=== PATIENT | female | born 1950 | race African-American/Black ===

== ENCOUNTER 2020-10-02 14:00 | IRF | payer MEDICARE, MEDICAID, SELFPAY ==
[2020-10-02 14:00] VITALS: BMI 22.8
--- NOTE | 2020-10-02 14:32 | ADMGEN ---
This patient, Jacinta Interiano, was admitted to [facility] Room 225-01. Patient/family oriented to hospital policies and general routines including ID bracelet, bed and alarms, visiting hours, pain management, procedures, bathroom and other care routines, personal items, smoking policy, room service/diet, and visiting hours. Information on how to activate the Rapid Response Team has been discussed. Patient/Family are encouraged to report perceived risks to care and to ask questions if they do not understand what they are told or what they should do.
[2020-10-02 14:35] VITALS: BP 143/53; PULSE 77; RESP 18; TEMP 36.3; O2SAT 100
[2020-10-02 17:11] LABS: Glucose Point of Care 156 (65-105)
[2020-10-02] MEDS: INSULIN ASPART (*BKC) 100 UNITS/ML 6 UNITS SUB-Q (17:55)
[2020-10-02] MEDS: ATORVASTATIN 40 MG TABLET 80 MG PO (20:12)
[2020-10-02] MEDS: HYDROcodone/acetaminophen (*CRX) 5-325 MG TABLET 1 TAB PO (20:13)
[2020-10-02] MEDS: INSULIN GLARGINE (*BKC) 100 UNITS/ML 18 UNITS SUB-Q (20:20)
[2020-10-02 21:20] LABS: Glucose Point of Care 186 (65-105)
[2020-10-02 22:00] VITALS: BP 130/50; PULSE 74; RESP 18; TEMP 36.6; O2SAT 97
[2020-10-03 04:27] VITALS: BP 129/53; PULSE 62; RESP 18; TEMP 36.2; O2SAT 100
[2020-10-03 05:09] LABS: Basophils Percent Auto 0.3 % (0.2-1.2); Eosinophils Absolute Auto 0.1 K/mm3 (0-0.3); Eosinophils Percent Auto 1.6 % (0-4.4); Hematocrit 35.6 % (37.0-47.0); Hemoglobin 11.6 g/dL (12.0-15.0); Immature Granulocyte Absolute 0.02 K/mm3 (0.00-0.031); Immature Granulocyte Percent A 0.3 % (0-0.5); Lymphocytes Absolute Auto 1.87 K/mm3 (0.9-3.2); Mean Corpuscular HGB Conc 32.6 g/dl (32-36); Mean Corpuscular Hemoglobin 32.3 pg (26-34); Mean Corpuscular Volume 99.2 fl (80-100); Mean Platelet Volume 10.2 fl (7.4-10.4); Monocytes Absolute Auto 0.6 K/mm3 (0.1-0.6); Monocytes Percent Auto 8.4 % (2.6-8.5); Neutrophils Absolute Auto 4.1 K/mm3 (1.3-6.7); Neutrophils Percent Auto 61.4 % (45.5-73.1); Platelet Count Result 249 k/mm3 (150-375); Red Blood Count 3.59 M/mm3 (4.2-5.4); Red Cell Distribution Width 12.1 % (11.5-14.5); White Blood Count 6.7 K/mm3 (4.5-10.0)
[2020-10-03 05:20] LABS: Anion Gap 8 mmol/L (8-16); Blood Urea Nitrogen 33 mg/dL (7-17); Calcium 9.3 mg/dL (8.4-10.2); Carbon Dioxide 28 mmol/L (22-30); Chloride 106 mmol/L (98-107); Cholesterol 138 mg/dL (0-200); Estimated CRCL calculation 29 ml/min; Estimated Glomerular Filt Rate 54; Glucose 117 mg/dL (65-105); HDL Direct 41 mg/dL; Potassium 4.3 mmol/L (3.4-5.0); Sodium 142 mmol/L (137-145); Triglycerides 119 mg/dL (<150)
[2020-10-03 05:25] LABS: Hemoglobin A1C 7.6 % (<5.7)
[2020-10-03 05:31] LABS: LDL Cholesterol Direct 62 mg/dL
[2020-10-03 06:35] LABS: Glucose Point of Care 134 (65-105)
[2020-10-03 08:00] VITALS: PULSE 62; RESP 18; O2SAT 100
[2020-10-03] MEDS: ASPIRIN 81 MG CHEWABLE TABLET PO (09:01)
[2020-10-03] MEDS: CLOPIDOGREL BISULFATE 75 MG TABLET PO (09:01)
[2020-10-03] MEDS: INSULIN ASPART (*BKC) 100 UNITS/ML 6 UNITS SUB-Q ×3 (09:02→17:27)
[2020-10-03 11:52] LABS: Glucose Point of Care 213 (65-105)
[2020-10-03] MEDS: INSULIN ASPART (*BKC) 100 UNITS/ML SUB-Q (12:11)
[2020-10-03 13:14] VITALS: BMI 22.8
--- NOTE | 2020-10-03 13:30 | RPD ---
INDIVIDUALIZED PLAN OF CARE FOR Jacinta Interiano Brief Synthesis of Pre-Admission Screen, Post-Admission Evaluation and Therapy Evaluations: The patient presents to rehab with Acute infarct in the posterior left paramedian yomaira with involvement of the left facial colliculus. Comorbidities include HTN, HLD, DMII with hyperglycemia, double vision, new vision deficits, left-sided weakness, PAD, arthritis, chronic pain, CAD, GERD, glaucoma, scoliosis, vitamin D deficiency, conjugate gaze palsy, quit smoking 1 month ago, cataracts, abscess of left groin, elevated liver enzymes, elevated hemoglobin A1C, thyromegaly, memory loss, acute kidney issues, anemia. The patient requires physician services for neurology services, medical oversight, and coordination of care. Emotional needs will be monitored as depression is a common sequelae of stroke. The patient needs physician monitoring and treatment of new visual deficits, hypertenion, hyperglycemia, elevated BUN and CREA, anemia, monitoring for adverse reactions to new medications, monitoring of infection, and pain control. The patient requires nursing services for frequent neuro checks, anticoagulation therapy, medication management and education, pressure relief and skin care management, monitoring of labs, bowel and bladder training, diabetes management and education, possible IV administration, and fall/safety precautions. Deficits include: ADLs, Balance, Cognition, Endurance, Family Training/Education, Mobility, Pain Management, ROM, Safety, Speech, Strength, Transfers, Swallowing. Executive Assistant To General Counsel/Case Management for: Discharge Planning and Patient/Family Counseling Physical Therapy: 5 days per week for 75 minutes. Treatments may include: Therapeutic Exercise, Gait Training, Neuromuscular Re-education, Transfer Training, Community Reintegration, Bed Mobility, Patient/Family Education, Wheelchair Mobility Group Therapy/Concurrent Therapy Rationales: -Improve attention span during functional activities in a distracted environment. -Enhance problem solving and/or adequate judgment skills during functional activities in a distracted environment. -Promote increased safety awareness in a distracted environment to reduce fall risk with functional tasks, transfers, and ambulation to allow a more safe, self-sufficient return to the home environment. -Improve dynamic balance skills to promote safety and independence with functional activities in a distracted environment for maximum gain. Occupational Therapy: 5 days per week for 75 minutes. Treatments may include: Therapeutic Exercise, Therapeutic Activity, Cognitive Training, Self-Care Transfer Training, Community Reintegration, Home Management, Patient/Family Education, Wheelchair Mobility Training, Energy Conservation Training Group Therapy/Concurrent Therapy Rationales: -Allow therapist to observe and teach generalization and carry-over of skills learned in individual therapy. -Enhance problem solving and sequencing skills during therapeutic activities in a distracted environment. -Promote increased safety awareness in a realistic setting to reduce fall risk with functional tasks due to visual and verbal distractions. -Increase functional level with ADLs, ADL transfers and use of adaptive equipment through therapeutic activities with others while promoting safety to allow a more safe, self-sufficient return home. Speech Therapy: 5 days per week for 30 minutes. Treatments may include: Dysphasia Therapy, Speech/Language/Communication Therapy, Cognitive Training, Patient/Family Education Group Therapy/Concurrent Therapy - Rationale: -Allow therapist to observe and teach generalization and carry-over of skills learned in individual therapy. -Improve comprehension skills with complex or abstract ideas through discussion in a realistic setting. -Enhance problem solving skills with complex issues during activities in a distracted environment. -Promote increased memory skills an
[2020-10-03 14:00] VITALS: BP 127/51; PULSE 72; RESP 20; TEMP 36.4; O2SAT 100
--- NOTE | 2020-10-03 14:04 | PCNSR ---
On 10/03/20, the student, Bella Del Cid, provided care and completed [facility] documentation on this patient. I have reviewed the student's documentation and agree with the findings.
--- NOTE | 2020-10-03 14:12 | WPDREHABHP ---
H&P: HPI History of Present Illness Date/Time: 10/03/20 14:12 Chief Complaint: brainstem stroke Narrative: HISTORY OF PRESENT ILLNESS: 70 years old right-handed female has been admitted to acute rehab of [facility] with the patient's primary rehab impairment category of 0 1 stroke and etiological diagnosis of acute infarct in the posterior left paramedian yomaira with involvement of the left facial colliculus, in addition to the comorbid conditions of 1. Type 2 diabetes mellitus 2. Hyperlipidemia 3. Hypertension 4. Peripheral arterial disease 4. GERD 5. Vitamin-D deficiency 6. Dry eye syndrome. I saw the patien [id number] at 1:00 p.m. on October 03, 2020. # history and physical exam: 70 years old right-handed female presented to [facility] on September 28, 2020 for evaluation of an ischemic stroke. The patient obviously has a history of diabetes mellitus, hyperlipidemia, hypertension, and peripheral arterial disease. She presented with left-sided weakness and left eye droop. She also had trouble seeing out of her right eye and had developed double vision with blurriness. There was not a clear time of onset of her symptoms and she quit smoking 1 month ago. She woke up on 09/28 20 at 7:00 a.m. she had trouble with her balance, around 1:00 a.m. her daughter noted the weakness. CT scan of the head was negative for any acute abnormalities. CTA of the head and neck was also negative for the flow limiting stenosis. EKG demonstrated an ST-T abnormality with sinus rhythm. MRI revealed a small focus of acute infarct in the posterior left paramedian yomaira with involvement of the left facial colliculus. The patient was started on stroke protocol and admitted to the ICU for closer monitoring. Neurologist Dr. cooper sure would was consulted and the patient was started on aspirin, Plavix, and atorvastatin therapy. Patient was outside the time frame for tPA administration. Jabier showed normal left ventricular size, thickness and hyperdynamic systolic function, estimated ejection fraction of more than 70%, and a grade 1 diastolic dysfunction. Hemoglobin A1c was 8.6 there is a plan to continue at and adjust insulin doses according to the evolution of the blood sugar levels. blood pressure was permissible . on 09/29 she underwent a clinical swallowing evaluation and she presented with evidence of oral dysphagia. she was started on general soft diet to chew diet with the option of supervision. The patient continued to show new visual deficits of her left eye, as the patient can't see out of left eye but is unable to track. She can only see partially out of her right eye, but nystagmus movements was present while tracking. Physical examination continued to reveal double vision, left-sided weakness, balance impairment, decreased gross motor control, and decreased safety awareness. She was awake alert oriented x3 she was discharged to [facility] on Lovenox to be further assessed by physician during follow-up after rehab. #COVID: the patient has not traveled outside the [place] or had contact with someone who is ill that has traveled outside the [place] in the past 21 days. The patient has not traveled to an area of the [place] that is experiencing known transmission of the Coronavirus and has not had close personal contact with anyone that has. The patient does not have a fever. The patient is not experiencing lower respiratory illness symptoms. The patient had a negative COVID-19 test on September 28, 2020 # therapy was initiated at the acute care facility and the patient was transferred to [facility] rehab floor from [facility] on October 02, 2020 FALLS OR SURGERIES: the patient has had no major surgery in the 100 days prior to admission. The patient has had 2 or more falls in the past year. She has had no falls with injury in the past year. PAST MEDICAL HISTORY: Adenomatous colon polyp, arthritis, chronic pain, coronary artery disease, diabetes mellitus type
[2020-10-03 17:07] LABS: Glucose Point of Care 127 (65-105)
[2020-10-03 20:00] VITALS: PULSE 65; RESP 18; O2SAT 100
[2020-10-03] MEDS: ATORVASTATIN 40 MG TABLET 80 MG PO (20:57)
[2020-10-03] MEDS: INSULIN GLARGINE (*BKC) 100 UNITS/ML 18 UNITS SUB-Q (20:59)
[2020-10-03 21:45] LABS: Glucose Point of Care 174 (65-105)
[2020-10-03 22:00] VITALS: BP 147/51; PULSE 65; RESP 18; TEMP 36.3; O2SAT 100
[2020-10-04 05:05] VITALS: BP 124/60; PULSE 68; RESP 18; TEMP 36.1; O2SAT 99
[2020-10-04 07:02] LABS: Glucose Point of Care 150 (65-105)
[2020-10-04 08:00] VITALS: PULSE 68; RESP 18; O2SAT 99
[2020-10-04] MEDS: INSULIN ASPART (*BKC) 100 UNITS/ML 6 UNITS SUB-Q ×3 (09:36→17:04)
[2020-10-04] MEDS: CLOPIDOGREL BISULFATE 75 MG TABLET PO (09:38)
[2020-10-04] MEDS: ASPIRIN 81 MG CHEWABLE TABLET PO (09:38)
[2020-10-04 12:02] LABS: Glucose Point of Care 135 (65-105)
[2020-10-04 14:00] VITALS: BP 122/47; PULSE 82; RESP 20; TEMP 36.7; O2SAT 100
--- NOTE | 2020-10-04 14:38 | WPDNEURORHBP ---
Subjective Date/time seen: 10/04/20 14:38 70 years old right-handed female with the diagnosis of a stroke secondary to acute infarct in the posterior left paramedian yomaira in addition to multiple comorbid conditions has been involved in the physical therapy and occupational therapy, has remained afebrile of temp of 36.1? pulse 68 respiration 18 pulse ox 99 room air and blood pressure 124/60, blood sugar 135 Review of Systems Review of Systems: All systems reviewed & are unremarkable except as noted in HPI and below Functional Status Ambulation Ability Ability to Ambulate 10 Feet: Minimum Assistance X 1 Ability to Ambulate 50 Feet With 2 Turns: Moderate Assistance X 1 Ability to Ambulate 150 Feet: Moderate Assistance X 1 Ambulation Assistive Devices: Walker, Wheeled Exam Const: General: alert, awake and tired appearing Nutritional Appearance: average body habitus and thin Orientation/consciousness: oriented to person and oriented to place HENMT: Head: normal to inspection Ears: hearing grossly normal bilaterally General nose exam: No nasal discharge present Face and sinus: normal facial exam Eyes: General: appearance normal, both eyes and all related structures Neck: Neck: full ROM Resp: Auscultation: clear to auscultation bilaterally Cardio: Jugular venous distension: no JVD Rate: regular rate Rhythm: regular rhythm GI: Auscultation: normal bowel sounds Neuro: General: patient oriented x3 Cranial nerves: Yes CN's II-XII intact bilaterally Motor exam (neuro): Abnormal motor strength present ( left hemiparesis) Psych: Appearance: grossly normal Objective Data Vital Signs Vital Signs: Vital Signs - 24 hr 10/03/20 20:00 10/03/20 22:00 10/04/20 05:05 Temperature 36.3 C L 36.1 C L Pulse Rate 65 65 68 Respiratory Rate 18 18 18 Blood Pressure 147/51 H 124/60 Pulse Oximetry 100 100 99 Intake/Output Intake/Output: Intake & Output 10/01/20 10/02/20 10/03/20 10/04/20 23:59 23:59 23:59 23:59 Intake Total 120 720 480 Balance 120 720 480 Meds/Results Medications: Active Medications Generic Name Dose Route Start Last Admin Trade Name Freq PRN Reason Stop Dose Admin Hydrocodone Bitart/Acetaminophen 1 tab 10/03/20 14:08 Hydrocodone/Acetaminophen (*Crx) 5-325 Mg Tablet PO Q4H PRN Pain Rated 4-6 Aspirin 81 mg 10/03/20 09:00 10/04/20 09:38 Aspirin 81 Mg Chewable Tablet PO 81 mg DAILY PHILL Administration Atorvastatin Calcium 80 mg 10/02/20 21:00 10/03/20 20:57 Atorvastatin 40 Mg Tablet PO 80 mg HS PHILL Administration Benzocaine 1 lozenge 10/04/20 11:57 Benzocaine/Menthol (*Bkc) 18 Ea Lozenge PO PRN PRN Sore Throat Clopidogrel Bisulfate 75 mg 10/03/20 09:00 10/04/20 09:38 Clopidogrel Bisulfate 75 Mg Tablet PO 75 mg DAILY PHILL Administration Dextrose 12.5 gm 10/02/20 14:50 Dextrose 50% 25 Gm/50 Ml Syringe IV PUSH PRN PRN Hypoglycemia Protocol Glucagon 1 mg 10/02/20 14:50 Glucagon For Inj 1 Mg Vial IM PRN PRN Hypoglycemia Protocol Glucose 15 gm 10/02/20 14:50 Glucose Oral Gel 15 Gm Of Glucse In 37.5 Gm Tube PO PRN PRN Hypoglycemia Protocol Dextrose 1,000 mls @ 100 mls/hr 10/02/20 14:50 Dextrose 5% 1,000 Ml IVPB PRN PRN Hypoglycemia Protocol Insulin Aspart 6 units 10/02/20 17:00 10/04/20 12:45 Insulin Aspart (*Bkc) 100 Units/Ml SUB-Q 6 units TIDWM PHILL Administration Insulin Aspart 2 - 5 units 10/02/20 17:00 10/04/20 12:10 Insulin Aspart (*Bkc) 100 Units/Ml SUB-Q Not Given TIDWM [facility] Protocol Insulin Glargine 18 units 10/02/20 21:00 10/03/20 20:59 Insulin Glargine (*Bkc) 100 Units/Ml SUB-Q 18 units HS PHILL Administration Polyethylene Glycol 17 gm 10/02/20 14:50 Polyethylene Glycol 3350 17 Gm Powd.Pack PO BID PRN Constipation Labs Labs: Laboratory Results - last 24 hr 10/03/20 10/03/20
[2020-10-04] MEDS: polyethylene glycoL 3350 17 GM POWD.PACK PO (14:46)
[2020-10-04] MEDS: BENZOCAINE/MENTHOL (*BKC) 18 EA LOZENGE 1 LOZENGE PO (14:52)
[2020-10-04 16:46] LABS: Glucose Point of Care 181 (65-105)
[2020-10-04 20:00] VITALS: PULSE 82; RESP 20; O2SAT 100
[2020-10-04] MEDS: ATORVASTATIN 40 MG TABLET 80 MG PO (20:33)
[2020-10-04] MEDS: INSULIN GLARGINE (*BKC) 100 UNITS/ML 18 UNITS SUB-Q (20:34)
[2020-10-04 21:35] VITALS: BP 106/44; PULSE 74; RESP 18; TEMP 36.4; O2SAT 100
[2020-10-04 21:45] LABS: Glucose Point of Care 156 (65-105)
[2020-10-05 04:38] VITALS: BP 124/42; PULSE 73; RESP 18; TEMP 36.5; O2SAT 96
[2020-10-05 06:33] LABS: Glucose Point of Care 132 (65-105)
[2020-10-05] MEDS: INSULIN ASPART (*BKC) 100 UNITS/ML 6 UNITS SUB-Q ×3 (08:51→17:02)
[2020-10-05] MEDS: ASPIRIN 81 MG CHEWABLE TABLET PO (08:53)
[2020-10-05] MEDS: CLOPIDOGREL BISULFATE 75 MG TABLET PO (08:53)
[2020-10-05 11:54] LABS: Glucose Point of Care 152 (65-105)
[2020-10-05 14:00] VITALS: BP 116/40; PULSE 77; RESP 20; TEMP 36.3; O2SAT 100
[2020-10-05 17:06] LABS: Glucose Point of Care 137 (65-105)
[2020-10-05] MEDS: ATORVASTATIN 40 MG TABLET 80 MG PO (20:28)
[2020-10-05 20:55] LABS: Glucose Point of Care 103 (65-105)
[2020-10-05 21:19] VITALS: BP 111/44; PULSE 69; RESP 20; TEMP 36.1; O2SAT 99
[2020-10-06 05:25] VITALS: BP 114/49; PULSE 65; RESP 18; TEMP 36.3; O2SAT 100
[2020-10-06 06:03] LABS: Glucose Point of Care 116 (65-105)
[2020-10-06] MEDS: ASPIRIN 81 MG CHEWABLE TABLET PO (08:26)
[2020-10-06] MEDS: CLOPIDOGREL BISULFATE 75 MG TABLET PO (08:26)
[2020-10-06] MEDS: polyethylene glycoL 3350 17 GM POWD.PACK PO (08:26)
[2020-10-06] MEDS: HYDROcodone/acetaminophen (*CRX) 5-325 MG TABLET 1 TAB PO ×2 (08:30→21:04)
[2020-10-06] MEDS: INSULIN ASPART (*BKC) 100 UNITS/ML 6 UNITS SUB-Q ×3 (08:33→17:05)
--- NOTE | 2020-10-06 09:59 | WPDNEURORHBP ---
Subjective Date/time seen: 10/06/20 09:59 70 years old right-handed female with acute infarct in the posterior left paramedian yomaira has been involved in the therapy, there is no new lab vital signs are stable with temp 36.3? pulse 65 respiration 18 pulse ox 100 blood pressure 114/49 on room air Review of Systems Review of Systems: All systems reviewed & are unremarkable except as noted in HPI and below Functional Status Ambulation Ability Ability to Ambulate 10 Feet: Contact Guard Ability to Ambulate 50 Feet With 2 Turns: Minimum Assistance X 1 Ability to Ambulate 150 Feet: Minimum Assistance X 1 Ambulation Assistive Devices: Walker, Wheeled Exam Const: General: cooperative, comfortable, no acute distress, alert and awake Nutritional Appearance: thin Limitations: other limitations HENMT: Ears: hearing grossly normal bilaterally General nose exam: Normal external nose present and No nasal discharge present Face and sinus: normal facial exam Mouth: Yes Normal oral and palatal mucosa present Eyes: General: appearance normal, both eyes and all related structures Neck: Neck: full ROM Resp: Effort & Inspection: normal respiratory effort Auscultation: clear to auscultation bilaterally Cardio: Rate: regular rate Rhythm: regular rhythm Skin: General skin exam: no rashes or lesions noted Neuro: General: patient oriented x3 Cranial nerves: Yes CN's II-XII intact bilaterally Cognition (Neuro): normal cognition Gait exam (Neuro): Assisted gait required Motor exam (neuro): Abnormal motor strength present ( left hemiparesis) Objective Data Vital Signs Vital Signs: Vital Signs - 24 hr 10/05/20 14:00 10/05/20 21:19 10/06/20 05:25 Temperature 36.3 C L 36.1 C L 36.3 C L Pulse Rate 77 69 65 Respiratory Rate 20 20 18 Blood Pressure 116/40 L 111/44 L 114/49 L Pulse Oximetry 100 99 100 Intake/Output Intake/Output: Intake & Output 10/03/20 10/04/20 10/05/20 10/06/20 23:59 23:59 23:59 23:59 Intake Total 720 720 840 240 Balance 720 720 840 240 Meds/Results Medications: Active Medications Generic Name Dose Route Start Last Admin Trade Name Freq PRN Reason Stop Dose Admin Hydrocodone Bitart/Acetaminophen 1 tab 10/03/20 14:08 10/06/20 08:30 Hydrocodone/Acetaminophen (*Crx) 5-325 Mg Tablet PO 1 tab Q4H PRN Administration Pain Rated 4-6 Aspirin 81 mg 10/03/20 09:00 10/06/20 08:26 Aspirin 81 Mg Chewable Tablet PO 81 mg DAILY PHILL Administration Atorvastatin Calcium 80 mg 10/02/20 21:00 10/05/20 20:28 Atorvastatin 40 Mg Tablet PO 80 mg HS PHILL Administration Benzocaine 1 lozenge 10/04/20 11:57 10/04/20 14:52 Benzocaine/Menthol (*Bkc) 18 Ea Lozenge PO 1 lozenge PRN PRN Administration Sore Throat Clopidogrel Bisulfate 75 mg 10/03/20 09:00 10/06/20 08:26 Clopidogrel Bisulfate 75 Mg Tablet PO 75 mg DAILY PHILL Administration Dextrose 12.5 gm 10/02/20 14:50 Dextrose 50% 25 Gm/50 Ml Syringe IV PUSH PRN PRN Hypoglycemia Protocol Glucagon 1 mg 10/02/20 14:50 Glucagon For Inj 1 Mg Vial IM PRN PRN Hypoglycemia Protocol Glucose 15 gm 10/02/20 14:50 Glucose Oral Gel 15 Gm Of Glucse In 37.5 Gm Tube PO PRN PRN Hypoglycemia Protocol Dextrose 1,000 mls @ 100 mls/hr 10/02/20 14:50 Dextrose 5% 1,000 Ml IVPB PRN PRN Hypoglycemia Protocol Insulin Aspart 6 units 10/02/20 17:00 10/06/20 08:33 Insulin Aspart (*Bkc) 100 Units/Ml SUB-Q 6 units TIDWM PHILL Administration Insulin Aspart 2 - 5 units 10/02/20 17:00 10/06/20 08:21 Insulin Aspart (*Bkc) 100 Units/Ml SUB-Q Not Given TIDWM [facility] Protocol Insulin Glargine 18 units 10/02/20 21:00 10/05/20 20:56 Insulin Glargine (*Bkc) 100 Units/Ml SUB-Q Not Given HS [facility] Polyethylene Glycol 17 gm 10/02/20 14:50 10/06/20 08:26 Polyethylene Glycol 3350 17 Gm Powd.Pack PO 17 gm BID PRN Administration Co
[2020-10-06] MEDS: INSULIN ASPART (*BKC) 100 UNITS/ML SUB-Q (11:54)
[2020-10-06 12:19] LABS: Glucose Point of Care 254 (65-105)
[2020-10-06 14:00] VITALS: BP 126/57; PULSE 84; RESP 18; TEMP 36.3; O2SAT 96
[2020-10-06 17:01] LABS: Glucose Point of Care 118 (65-105)
[2020-10-06] MEDS: ATORVASTATIN 40 MG TABLET 80 MG PO (21:04)
[2020-10-06 21:16] VITALS: BP 141/53; PULSE 69; RESP 18; TEMP 36.3; O2SAT 100
[2020-10-06] MEDS: INSULIN GLARGINE (*BKC) 100 UNITS/ML 18 UNITS SUB-Q (21:16)
[2020-10-06 21:21] VITALS: BP 104/75; PULSE 82; RESP 18; TEMP 36.4; O2SAT 93
[2020-10-06 21:31] VITALS: BP 141/53; PULSE 69; RESP 18; TEMP 36.3; O2SAT 100
[2020-10-06 22:28] LABS: Glucose Point of Care 139 (65-105)
[2020-10-07 05:37] VITALS: BP 109/38; PULSE 62; RESP 18; TEMP 36.4; O2SAT 100
[2020-10-07 06:46] LABS: Glucose Point of Care 84 (65-105)
[2020-10-07] MEDS: INSULIN ASPART (*BKC) 100 UNITS/ML 6 UNITS SUB-Q ×3 (07:59→17:32)
[2020-10-07] MEDS: CLOPIDOGREL BISULFATE 75 MG TABLET PO (08:01)
[2020-10-07] MEDS: ASPIRIN 81 MG CHEWABLE TABLET PO (08:01)
[2020-10-07 08:15] LABS: Glucose Point of Care 120 (65-105)
[2020-10-07 12:09] LABS: Glucose Point of Care 131 (65-105)
--- NOTE | 2020-10-07 13:32 | WPDNEURORHBP ---
Subjective Date/time seen: 10/07/20 13:32 70 years old right-handed female with acute infarct and posterior left paramedian yomaira has been involved the physical therapy and occupational therapy at present able to ambulate up to 150ft with minimal assistance of 1 using a wheeled walker. Case were discussing the weekly meeting as well she is definitely improving we are expecting to discharge her on 15 of October her posture is still did very good visual difficulties 1 of the component to result in the possible instability, she has remained afebrile her blood pressure 109/38 pulse 62 respiration 18 temp 36.4? pulse ox 100% on the room air, is no change in the medications Review of Systems Review of Systems: All systems reviewed & are unremarkable except as noted in HPI and below Functional Status Ambulation Ability Ability to Ambulate 10 Feet: Standby Assistance Ability to Ambulate 50 Feet With 2 Turns: Contact Guard Ability to Ambulate 150 Feet: Contact Guard Ambulation Assistive Devices: Walker, Wheeled Transfers Ability Ability to Transfer In/Out of Chair: Contact Guard Exam Const: General: cooperative, comfortable and no acute distress Nutritional Appearance: average body habitus Orientation/consciousness: patient oriented x3 Limitations: other limitations ( balance) HENMT: Head: normocephalic Ears: hearing grossly normal bilaterally General nose exam: Normal external nose present and No nasal discharge present Face and sinus: normal facial exam Mouth: Yes Normal oral and palatal mucosa present Eyes: General: appearance normal, both eyes and all related structures Neck: Neck: full ROM Resp: Effort & Inspection: normal respiratory effort Auscultation: clear to auscultation bilaterally Cardio: Rate: regular rate GI: Auscultation: normal bowel sounds Neuro: General: patient oriented x3 Cranial nerves: Yes CN's II-XII intact bilaterally Motor exam (neuro): Abnormal motor strength present ( left hemiparesis) Psych: Appearance: grossly normal Objective Data Vital Signs Vital Signs: Vital Signs - 24 hr 10/06/20 14:00 10/06/20 21:16 10/06/20 21:21 Temperature 36.3 C L 36.3 C L 36.4 C L Pulse Rate 84 69 82 Respiratory Rate 18 18 18 Blood Pressure 126/57 L 141/53 H 104/75 Pulse Oximetry 96 100 93 10/06/20 21:31 10/07/20 05:37 Temperature 36.3 C L 36.4 C L Pulse Rate 69 62 Respiratory Rate 18 18 Blood Pressure 141/53 H 109/38 L Pulse Oximetry 100 100 Intake/Output Intake/Output: Intake & Output 10/04/20 10/05/20 10/06/20 10/07/20 23:59 23:59 23:59 23:59 Intake Total 720 840 720 600 Balance 720 840 720 600 Meds/Results Medications: Active Medications Generic Name Dose Route Start Last Admin Trade Name Freq PRN Reason Stop Dose Admin Hydrocodone Bitart/Acetaminophen 1 tab 10/03/20 14:08 10/06/20 21:04 Hydrocodone/Acetaminophen (*Crx) 5-325 Mg Tablet PO 1 tab Q4H PRN Administration Pain Rated 4-6 Aspirin 81 mg 10/03/20 09:00 10/07/20 08:01 Aspirin 81 Mg Chewable Tablet PO 81 mg DAILY PHILL Administration Atorvastatin Calcium 80 mg 10/02/20 21:00 10/06/20 21:04 Atorvastatin 40 Mg Tablet PO 80 mg HS PHILL Administration Benzocaine 1 lozenge 10/04/20 11:57 10/04/20 14:52 Benzocaine/Menthol (*Bkc) 18 Ea Lozenge PO 1 lozenge PRN PRN Administration Sore Throat Bisacodyl 10 mg 10/07/20 11:24 Bisacodyl 10 Mg Suppository RECTAL QAM PRN Constipation Clopidogrel Bisulfate 75 mg 10/03/20 09:00 10/07/20 08:01 Clopidogrel Bisulfate 75 Mg Tablet PO 75 mg DAILY PHILL Administration Dextrose 12.5 gm 10/02/20 14:50 Dextrose 50% 25 Gm/50 Ml Syringe IV PUSH PRN PRN Hypoglycemia Protocol Glucagon 1 mg 10/02/20 14:50 Glucagon For Inj 1 Mg Vial IM PRN PRN Hypoglycemia Protocol Glucose 15 gm 10/02/20 14:50 Glucose Oral Gel 15 Gm Of Glucse In 37.5 Gm Tube PO PRN PRN Hypoglycemia
[2020-10-07 14:00] VITALS: BP 137/40; PULSE 72; RESP 16; TEMP 36.6; O2SAT 100
[2020-10-07] MEDS: HYDROcodone/acetaminophen (*CRX) 5-325 MG TABLET 1 TAB PO (14:29)
[2020-10-07 16:55] LABS: Glucose Point of Care 136 (65-105)
[2020-10-07] MEDS: ATORVASTATIN 40 MG TABLET 80 MG PO (20:35)
[2020-10-07] MEDS: INSULIN GLARGINE (*BKC) 100 UNITS/ML 18 UNITS SUB-Q (20:39)
[2020-10-07 21:38] LABS: Glucose Point of Care 152 (65-105)
[2020-10-07 22:00] VITALS: BP 132/46; PULSE 70; RESP 16; TEMP 36.5; O2SAT 99
[2020-10-08] MEDS: HYDROcodone/acetaminophen (*CRX) 5-325 MG TABLET 1 TAB PO ×2 (04:36→20:30)
[2020-10-08 06:00] VITALS: BP 138/47; PULSE 70; RESP 16; TEMP 36.6; O2SAT 98
[2020-10-08 06:13] LABS: Glucose Point of Care 152 (65-105)
[2020-10-08] MEDS: CLOPIDOGREL BISULFATE 75 MG TABLET PO (08:25)
[2020-10-08] MEDS: ASPIRIN 81 MG CHEWABLE TABLET PO (08:25)
[2020-10-08] MEDS: INSULIN ASPART (*BKC) 100 UNITS/ML 6 UNITS SUB-Q ×3 (08:25→16:58)
[2020-10-08] MEDS: INSULIN ASPART (*BKC) 100 UNITS/ML SUB-Q (12:13)
[2020-10-08 12:24] LABS: Glucose Point of Care 235 (65-105)
--- NOTE | 2020-10-08 13:05 | PCDIET ---
Nutrition Follow-Up Complete: Nutrition Diagnosis: Swallowing difficulties related to CVA as evidenced by easy to chew diet recommendation. Nutrition Goal: Patient to consume 75% or more of meals on her diabetic consistent carbohydrate diet. Goal met. Patient on phone at time of visit but stated food is real good . Average intake since 10/04/20 was 86% of meals. Continues on diabetic, minced and moist diet with Glucerna Shake TID. Last recorded weight is 54.7 kg. Recommend obtaining new weight. Bowel Motility: Last BM on 09/30/20 per nursing flowsheet. Patient receiving Miralax and Senna and has prn orders for Dulcolax and Lactulose. RN aware. Labs Reviewed: Glu (152) Meds Noted: [place], Novolog, Lipitor, Lantus, Senna, Miralax, Lactulose prn, Dulcolax prn Additional Notes: No documented skin breakdown. Will continue to monitor with same goal. Nutrition Monitoring and Evaluation: Follow up every 5 days.
[2020-10-08 14:00] VITALS: BP 134/54; PULSE 87; RESP 16; TEMP 36.7; O2SAT 100
--- NOTE | 2020-10-08 16:32 | WPDNEURORHBP ---
Subjective Date/time seen: 10/08/20 16:32 70 years old right-handed female with acute infarct a posterior left paramedian yomaira has been involved in the physical therapy and occupational therapy, vital signs are stable with blood pressure 134/54 pulse ox 100 and has no new lab Review of Systems Review of Systems: All systems reviewed & are unremarkable except as noted in HPI and below Functional Status Ambulation Ability Ability to Ambulate 10 Feet: Standby Assistance Ability to Ambulate 50 Feet With 2 Turns: Contact Guard Ability to Ambulate 150 Feet: Contact Guard Ambulation Assistive Devices: Walker, Wheeled Transfers Ability Ability to Transfer In/Out of Chair: Contact Guard Exam Const: General: comfortable and no acute distress Nutritional Appearance: average body habitus Orientation/consciousness: oriented to person, oriented to place, oriented to time and patient oriented x3 Limitations: physical limitations HENMT: Ears: hearing grossly normal bilaterally General nose exam: Normal external nose present Face and sinus: normal facial exam Eyes: General: appearance normal, both eyes and all related structures Neck: Neck: full ROM Resp: Effort & Inspection: normal respiratory effort and able to speak in complete sentences Cardio: Rate: regular rate Rhythm: regular rhythm GI: Auscultation: normal bowel sounds Neuro: General: patient oriented x3 Cranial nerves: Yes CN's II-XII intact bilaterally Cognition (Neuro): normal cognition Speech: normal speech Motor exam (neuro): Abnormal motor strength present ( left hemiparesis) Psych: Appearance: grossly normal Objective Data Vital Signs Vital Signs: Vital Signs - 24 hr 10/07/20 22:00 10/08/20 06:00 10/08/20 14:00 Temperature 36.5 C 36.6 C 36.7 C Pulse Rate 70 70 87 Respiratory Rate 16 16 16 Blood Pressure 132/46 L 138/47 L 134/54 L Pulse Oximetry 99 98 100 Intake/Output Intake/Output: Intake & Output 10/05/20 10/06/20 10/07/20 10/08/20 23:59 23:59 23:59 23:59 Intake Total 840 720 840 660 Balance 840 720 840 660 Meds/Results Medications: Active Medications Generic Name Dose Route Start Last Admin Trade Name Freq PRN Reason Stop Dose Admin Hydrocodone Bitart/Acetaminophen 1 tab 10/03/20 14:08 10/08/20 04:36 Hydrocodone/Acetaminophen (*Crx) 5-325 Mg Tablet PO 1 tab Q4H PRN Administration Pain Rated 4-6 Aspirin 81 mg 10/03/20 09:00 10/08/20 08:25 Aspirin 81 Mg Chewable Tablet PO 81 mg DAILY PHILL Administration Atorvastatin Calcium 80 mg 10/02/20 21:00 10/07/20 20:35 Atorvastatin 40 Mg Tablet PO 80 mg HS PHILL Administration Benzocaine 1 lozenge 10/04/20 11:57 10/04/20 14:52 Benzocaine/Menthol (*Bkc) 18 Ea Lozenge PO 1 lozenge PRN PRN Administration Sore Throat Bisacodyl 10 mg 10/07/20 11:24 Bisacodyl 10 Mg Suppository RECTAL QAM PRN Constipation Clopidogrel Bisulfate 75 mg 10/03/20 09:00 10/08/20 08:25 Clopidogrel Bisulfate 75 Mg Tablet PO 75 mg DAILY PHILL Administration Dextrose 12.5 gm 10/02/20 14:50 Dextrose 50% 25 Gm/50 Ml Syringe IV PUSH PRN PRN Hypoglycemia Protocol Glucagon 1 mg 10/02/20 14:50 Glucagon For Inj 1 Mg Vial IM PRN PRN Hypoglycemia Protocol Glucose 15 gm 10/02/20 14:50 Glucose Oral Gel 15 Gm Of Glucse In 37.5 Gm Tube PO PRN PRN Hypoglycemia Protocol Dextrose 1,000 mls @ 100 mls/hr 10/02/20 14:50 Dextrose 5% 1,000 Ml IVPB PRN PRN Hypoglycemia Protocol Insulin Aspart 6 units 10/02/20 17:00 10/08/20 12:13 Insulin Aspart (*Bkc) 100 Units/Ml SUB-Q 6 units TIDWM [facility] Administration Insulin Aspart 2 - 5 units 10/02/20 17:00 10/08/20 12:13 Insulin Aspart (*Bkc) 100 Units/Ml SUB-Q 2 units TIDWM [facility] Administration Protocol Insulin Glargine 18 units 10/02/20 21:00 10/07/20 20:39 Insulin Glargine (*Bkc) 100 Units/Ml SUB-Q 18 units
[2020-10-08 16:52] LABS: Glucose Point of Care 172 (65-105)
[2020-10-08 20:15] LABS: Glucose Point of Care 174 (65-105)
[2020-10-08] MEDS: INSULIN GLARGINE (*BKC) 100 UNITS/ML 18 UNITS SUB-Q (20:16)
[2020-10-08] MEDS: ATORVASTATIN 40 MG TABLET 80 MG PO (20:17)
[2020-10-08] MEDS: SENNA/DOCUSATE SODIUM TABLET 2 TAB PO (20:18)
[2020-10-08] MEDS: polyethylene glycoL 3350 17 GM POWD.PACK PO (20:18)
[2020-10-08 21:56] VITALS: BP 123/44; PULSE 62; RESP 18; TEMP 36.6; O2SAT 100
[2020-10-09 05:54] VITALS: BP 124/49; PULSE 67; RESP 16; TEMP 36.2; O2SAT 100
[2020-10-09 07:00] LABS: Glucose Point of Care 114 (65-105)
[2020-10-09] MEDS: INSULIN ASPART (*BKC) 100 UNITS/ML 6 UNITS SUB-Q ×3 (07:50→17:10)
[2020-10-09] MEDS: CLOPIDOGREL BISULFATE 75 MG TABLET PO (07:51)
[2020-10-09] MEDS: ASPIRIN 81 MG CHEWABLE TABLET PO (07:51)
[2020-10-09 12:08] LABS: Glucose Point of Care 196 (65-105)
--- NOTE | 2020-10-09 13:07 | WPDNEURORHBP ---
Subjective Date/time seen: 10/09/20 13:07 status post stroke involving the brainstem that is the yomaira involved in the physical therapy and occupational therapy, there is no new lab today and her vital signs are stable, she is complaining of muscle spasm for which the medications have been ordered accordingly Review of Systems Review of Systems: All systems reviewed & are unremarkable except as noted in HPI and below Functional Status Ambulation Ability Ability to Ambulate 10 Feet: Contact Guard Ability to Ambulate 50 Feet With 2 Turns: Contact Guard Ability to Ambulate 150 Feet: Contact Guard Ambulation Assistive Devices: Walker, Wheeled Transfers Ability Ability to Transfer In/Out of Chair: Contact Guard Exam Const: General: no acute distress Nutritional Appearance: average body habitus and thin HENMT: Ears: hearing grossly normal bilaterally General nose exam: Normal external nose present and No nasal discharge present Face and sinus: normal facial exam Mouth: Yes Normal oral and palatal mucosa present Eyes: General: appearance normal, both eyes and all related structures Neck: Neck: full ROM Resp: Effort & Inspection: able to speak in complete sentences Auscultation: clear to auscultation bilaterally Cardio: Rate: regular rate GI: Auscultation: normal bowel sounds Neuro: General: patient oriented x3 and moves all extremities Cranial nerves: Yes CN's II-XII intact bilaterally Cognition (Neuro): normal cognition Speech: normal speech Motor exam (neuro): Abnormal motor strength present ( left hemiparesis) Psych: Appearance: grossly normal Objective Data Vital Signs Vital Signs: Vital Signs - 24 hr 10/08/20 14:00 10/08/20 21:56 10/09/20 05:54 Temperature 36.7 C 36.6 C 36.2 C L Pulse Rate 87 62 67 Respiratory Rate 16 18 16 Blood Pressure 134/54 L 123/44 L 124/49 L Pulse Oximetry 100 100 100 Intake/Output Intake/Output: Intake & Output 10/06/20 10/07/20 10/08/20 10/09/20 23:59 23:59 23:59 23:59 Intake Total 720 840 900 240 Balance 720 840 900 240 Meds/Results Medications: Active Medications Generic Name Dose Route Start Last Admin Trade Name Freq PRN Reason Stop Dose Admin Hydrocodone Bitart/Acetaminophen 1 tab 10/03/20 14:08 10/08/20 20:30 Hydrocodone/Acetaminophen (*Crx) 5-325 Mg Tablet PO 1 tab Q4H PRN Administration Pain Rated 4-6 Aspirin 81 mg 10/03/20 09:00 10/09/20 07:51 Aspirin 81 Mg Chewable Tablet PO 81 mg DAILY PHILL Administration Atorvastatin Calcium 80 mg 10/02/20 21:00 10/08/20 20:17 Atorvastatin 40 Mg Tablet PO 80 mg HS PHILL Administration Benzocaine 1 lozenge 10/04/20 11:57 10/04/20 14:52 Benzocaine/Menthol (*Bkc) 18 Ea Lozenge PO 1 lozenge PRN PRN Administration Sore Throat Bisacodyl 10 mg 10/07/20 11:24 Bisacodyl 10 Mg Suppository RECTAL QAM PRN Constipation Clopidogrel Bisulfate 75 mg 10/03/20 09:00 10/09/20 07:51 Clopidogrel Bisulfate 75 Mg Tablet PO 75 mg DAILY PHILL Administration Dextrose 12.5 gm 10/02/20 14:50 Dextrose 50% 25 Gm/50 Ml Syringe IV PUSH PRN PRN Hypoglycemia Protocol Glucagon 1 mg 10/02/20 14:50 Glucagon For Inj 1 Mg Vial IM PRN PRN Hypoglycemia Protocol Glucose 15 gm 10/02/20 14:50 Glucose Oral Gel 15 Gm Of Glucse In 37.5 Gm Tube PO PRN PRN Hypoglycemia Protocol Dextrose 1,000 mls @ 100 mls/hr 10/02/20 14:50 Dextrose 5% 1,000 Ml IVPB PRN PRN Hypoglycemia Protocol Insulin Aspart 6 units 10/02/20 17:00 10/09/20 12:01 Insulin Aspart (*Bkc) 100 Units/Ml SUB-Q 6 units TIDWM [facility] Administration Insulin Aspart 2 - 5 units 10/02/20 17:00 10/09/20 12:02 Insulin Aspart (*Bkc) 100 Units/Ml SUB-Q Not Given TIDWM [facility] Protocol Insulin Glargine 18 units 10/02/20 21:00 10/08/20 20:16 Insulin Glargine (*Bkc) 100 Units/Ml SUB-Q 18 units HS PHILL Administration
[2020-10-09 14:00] VITALS: BP 125/51; PULSE 76; RESP 16; TEMP 36.6; O2SAT 100
[2020-10-09 16:52] LABS: Glucose Point of Care 141 (65-105)
[2020-10-09] MEDS: SENNA/DOCUSATE SODIUM TABLET 2 TAB PO (19:59)
[2020-10-09 20:00] VITALS: PULSE 76; RESP 16; O2SAT 100
[2020-10-09] MEDS: polyethylene glycoL 3350 17 GM POWD.PACK PO (20:00)
[2020-10-09] MEDS: ATORVASTATIN 40 MG TABLET 80 MG PO (20:00)
[2020-10-09] MEDS: INSULIN GLARGINE (*BKC) 100 UNITS/ML 18 UNITS SUB-Q (20:07)
[2020-10-09] MEDS: CYCLOBENZAPRINE HCL 5 MG TABLET PO (20:38)
[2020-10-09 20:46] LABS: Glucose Point of Care 174 (65-105)
[2020-10-09 22:00] VITALS: BP 114/52; PULSE 74; RESP 16; TEMP 36.4; O2SAT 99
[2020-10-10 04:56] LABS: Basophils Percent Auto 0.3 % (0.2-1.2); Eosinophils Absolute Auto 0.1 K/mm3 (0-0.3); Eosinophils Percent Auto 1.3 % (0-4.4); Hematocrit 32.9 % (37.0-47.0); Hemoglobin 10.9 g/dL (12.0-15.0); Immature Granulocyte Absolute 0.01 K/mm3 (0.00-0.031); Immature Granulocyte Percent A 0.1 % (0-0.5); Lymphocytes Absolute Auto 1.36 K/mm3 (0.9-3.2); Lymphocytes Percent Auto 18.1 % (18.3-44.2); Mean Corpuscular HGB Conc 33.1 g/dl (32-36); Mean Corpuscular Hemoglobin 32.7 pg (26-34); Mean Corpuscular Volume 98.8 fl (80-100); Mean Platelet Volume 10.4 fl (7.4-10.4); Monocytes Absolute Auto 0.6 K/mm3 (0.1-0.6); Monocytes Percent Auto 7.9 % (2.6-8.5); Neutrophils Absolute Auto 5.4 K/mm3 (1.3-6.7); Neutrophils Percent Auto 72.3 % (45.5-73.1); Platelet Count Result 234 k/mm3 (150-375); Red Blood Count 3.33 M/mm3 (4.2-5.4); Red Cell Distribution Width 12.3 % (11.5-14.5); White Blood Count 7.5 K/mm3 (4.5-10.0)
[2020-10-10 05:13] LABS: Anion Gap 3 mmol/L (8-16); Blood Urea Nitrogen 25 mg/dL (7-17); Calcium 9.2 mg/dL (8.4-10.2); Carbon Dioxide 28 mmol/L (22-30); Chloride 109 mmol/L (98-107); Estimated CRCL calculation 34 ml/min; Estimated Glomerular Filt Rate > 60; Glucose 100 mg/dL (65-105); Potassium 4.3 mmol/L (3.4-5.0); Sodium 140 mmol/L (137-145)
[2020-10-10 06:00] VITALS: BP 117/52; PULSE 72; RESP 16; TEMP 36.4; O2SAT 100
[2020-10-10 06:57] LABS: Glucose Point of Care 103 (65-105)
[2020-10-10] MEDS: INSULIN ASPART (*BKC) 100 UNITS/ML 6 UNITS SUB-Q ×3 (07:40→16:58)
[2020-10-10] MEDS: CLOPIDOGREL BISULFATE 75 MG TABLET PO (07:40)
[2020-10-10] MEDS: ASPIRIN 81 MG CHEWABLE TABLET PO (07:40)
[2020-10-10 11:54] LABS: Glucose Point of Care 159 (65-105)
[2020-10-10 14:00] VITALS: BP 129/59; PULSE 82; RESP 18; TEMP 36.4; O2SAT 95
--- NOTE | 2020-10-10 15:10 | WPDNEURORHBP ---
Subjective Date/time seen: 10/10/20 15:10 is status post involving the brainstem that response has been involved in the physical therapy and occupational therapy, vital signs are stable Review of Systems Review of Systems: All systems reviewed & are unremarkable except as noted in HPI and below Functional Status Ambulation Ability Ability to Ambulate 10 Feet: Standby Assistance Ability to Ambulate 50 Feet With 2 Turns: Contact Guard Ability to Ambulate 150 Feet: Contact Guard Ambulation Assistive Devices: Walker, Wheeled Transfers Ability Ability to Transfer In/Out of Chair: Contact Guard Exam Const: General: cooperative, no acute distress, alert and awake Nutritional Appearance: thin Limitations: physical limitations ( neurological deficit) Eyes: General: appearance normal, both eyes and all related structures Neck: Neck: normal visual inspection Resp: Effort & Inspection: normal respiratory effort Auscultation: clear to auscultation bilaterally Cardio: Rate: regular rate GI: Auscultation: normal bowel sounds Neuro: General: patient oriented x3 Objective Data Vital Signs Vital Signs: Vital Signs - 24 hr 10/09/20 20:00 10/09/20 22:00 10/10/20 06:00 Temperature 36.4 C L 36.4 C Pulse Rate 76 74 72 Respiratory Rate 16 16 16 Blood Pressure 114/52 L 117/52 L Pulse Oximetry 100 99 100 Intake/Output Intake/Output: Intake & Output 10/07/20 10/08/20 10/09/20 10/10/20 23:59 23:59 23:59 23:59 Intake Total 840 900 720 840 Balance 840 900 720 840 Meds/Results Medications: Active Medications Generic Name Dose Route Start Last Admin Trade Name Freq PRN Reason Stop Dose Admin Hydrocodone Bitart/Acetaminophen 1 tab 10/03/20 14:08 10/08/20 20:30 Hydrocodone/Acetaminophen (*Crx) 5-325 Mg Tablet PO 1 tab Q4H PRN Administration Pain Rated 4-6 Aspirin 81 mg 10/03/20 09:00 10/10/20 07:40 Aspirin 81 Mg Chewable Tablet PO 81 mg DAILY PHILL Administration Atorvastatin Calcium 80 mg 10/02/20 21:00 10/09/20 20:00 Atorvastatin 40 Mg Tablet PO 80 mg HS PHILL Administration Benzocaine 1 lozenge 10/04/20 11:57 10/04/20 14:52 Benzocaine/Menthol (*Bkc) 18 Ea Lozenge PO 1 lozenge PRN PRN Administration Sore Throat Bisacodyl 10 mg 10/07/20 11:24 Bisacodyl 10 Mg Suppository RECTAL QAM PRN Constipation Clopidogrel Bisulfate 75 mg 10/03/20 09:00 10/10/20 07:40 Clopidogrel Bisulfate 75 Mg Tablet PO 75 mg DAILY PHILL Administration Cyclobenzaprine HCl 5 mg 10/09/20 17:21 10/09/20 20:38 Cyclobenzaprine Hcl 5 Mg Tablet PO 5 mg Q8H PRN Administration Muscle Spasm Dextrose 12.5 gm 10/02/20 14:50 Dextrose 50% 25 Gm/50 Ml Syringe IV PUSH PRN PRN Hypoglycemia Protocol Glucagon 1 mg 10/02/20 14:50 Glucagon For Inj 1 Mg Vial IM PRN PRN Hypoglycemia Protocol Glucose 15 gm 10/02/20 14:50 Glucose Oral Gel 15 Gm Of Glucse In 37.5 Gm Tube PO PRN PRN Hypoglycemia Protocol Dextrose 1,000 mls @ 100 mls/hr 10/02/20 14:50 Dextrose 5% 1,000 Ml IVPB PRN PRN Hypoglycemia Protocol Insulin Aspart 6 units 10/02/20 17:00 10/10/20 12:23 Insulin Aspart (*Bkc) 100 Units/Ml SUB-Q 6 units TIDWM [facility] Administration Insulin Aspart 2 - 5 units 10/02/20 17:00 10/10/20 11:54 Insulin Aspart (*Bkc) 100 Units/Ml SUB-Q Not Given TIDWM [facility] Protocol Insulin Glargine 18 units 10/02/20 21:00 10/09/20 20:07 Insulin Glargine (*Bkc) 100 Units/Ml SUB-Q 18 units HS PHILL Administration Lactulose 30 gm 10/08/20 11:49 Lactulose 20 Gm/30 Ml Udc PO BID PRN Constipation Polyethylene Glycol 17 gm 10/08/20 21:00 10/09/20 20:00 Polyethylene Glycol 3350 17 Gm Powd.Pack PO 17 gm HS PHILL Administration Senna/Docusate Sodium 2 tab 10/08/20 21:00 10/09/20 19:59 Senna/Docusate Sodium Tablet PO 2 tab HS PHILL Administration
[2020-10-10 16:45] LABS: Glucose Point of Care 136 (65-105)
[2020-10-10] MEDS: SENNA/DOCUSATE SODIUM TABLET 2 TAB PO (20:14)
[2020-10-10] MEDS: polyethylene glycoL 3350 17 GM POWD.PACK PO (20:16)
[2020-10-10] MEDS: INSULIN GLARGINE (*BKC) 100 UNITS/ML 18 UNITS SUB-Q (20:19)
[2020-10-10] MEDS: ATORVASTATIN 40 MG TABLET 80 MG PO (20:37)
[2020-10-10 21:37] LABS: Glucose Point of Care 188 (65-105)
[2020-10-10 22:00] VITALS: BP 119/43; PULSE 72; RESP 18; TEMP 36.7; O2SAT 98
[2020-10-11 05:15] VITALS: BP 124/46; PULSE 78; RESP 18; TEMP 36.6; O2SAT 99
[2020-10-11 06:33] LABS: Glucose Point of Care 112 (65-105)
[2020-10-11 08:00] VITALS: PULSE 78; RESP 18; O2SAT 99
[2020-10-11] MEDS: CLOPIDOGREL BISULFATE 75 MG TABLET PO (09:17)
[2020-10-11] MEDS: ASPIRIN 81 MG CHEWABLE TABLET PO (09:17)
[2020-10-11] MEDS: INSULIN ASPART (*BKC) 100 UNITS/ML 6 UNITS SUB-Q ×2 (09:19→12:29)
[2020-10-11 11:35] LABS: Glucose Point of Care 157 (65-105)
[2020-10-11 14:00] VITALS: BP 137/49; PULSE 84; RESP 18; TEMP 36.5; O2SAT 96
[2020-10-11 17:11] LABS: Glucose Point of Care 83 (65-105)
[2020-10-11] MEDS: SENNA/DOCUSATE SODIUM TABLET 2 TAB PO (19:52)
[2020-10-11] MEDS: ATORVASTATIN 40 MG TABLET 80 MG PO (19:54)
[2020-10-11] MEDS: polyethylene glycoL 3350 17 GM POWD.PACK PO (19:55)
[2020-10-11] MEDS: INSULIN GLARGINE (*BKC) 100 UNITS/ML 18 UNITS SUB-Q (20:01)
[2020-10-11 21:08] LABS: Glucose Point of Care 223 (65-105)
[2020-10-11 21:26] VITALS: BP 117/47; PULSE 68; RESP 18; TEMP 36.6; O2SAT 99
[2020-10-12 05:41] VITALS: BP 121/40; PULSE 71; RESP 18; TEMP 36.4; O2SAT 99
[2020-10-12 06:50] LABS: Glucose Point of Care 126 (65-105)
[2020-10-12 08:00] VITALS: PULSE 71; RESP 18; O2SAT 99
[2020-10-12] MEDS: CLOPIDOGREL BISULFATE 75 MG TABLET PO (08:16)
[2020-10-12] MEDS: INSULIN ASPART (*BKC) 100 UNITS/ML 6 UNITS SUB-Q ×2 (08:16→17:29)
[2020-10-12] MEDS: ASPIRIN 81 MG CHEWABLE TABLET PO (08:16)
[2020-10-12] MEDS: HYDROcodone/acetaminophen (*CRX) 5-325 MG TABLET 1 TAB PO (09:14)
[2020-10-12 12:00] LABS: Glucose Point of Care 91 (65-105)
--- NOTE | 2020-10-12 12:12 | PC.NURSE ---
Patient refuses insulin due to low blood sugar.
--- NOTE | 2020-10-12 12:12 | PC.NURSE ---
Dr. Medellin is aware of Insulin being held at dinner time on tuesday the .
[2020-10-12 14:00] VITALS: BP 120/66; PULSE 71; RESP 18; TEMP 36.5; O2SAT 100
[2020-10-12 16:54] LABS: Glucose Point of Care 151 (65-105)
[2020-10-12 20:40] VITALS: PULSE 74; RESP 18; O2SAT 98
[2020-10-12 20:59] LABS: Glucose Point of Care 126 (65-105)
[2020-10-12] MEDS: INSULIN GLARGINE (*BKC) 100 UNITS/ML 18 UNITS SUB-Q (21:00)
[2020-10-12] MEDS: polyethylene glycoL 3350 17 GM POWD.PACK PO (21:00)
[2020-10-12] MEDS: SENNA/DOCUSATE SODIUM TABLET 2 TAB PO (21:00)
[2020-10-12] MEDS: ATORVASTATIN 40 MG TABLET 80 MG PO (21:00)
[2020-10-12 21:14] VITALS: BP 113/41; PULSE 74; RESP 18; TEMP 36.6; O2SAT 98
[2020-10-13 05:51] VITALS: BP 132/47; PULSE 71; RESP 16; TEMP 36; O2SAT 99
[2020-10-13 06:36] LABS: Glucose Point of Care 92 (65-105)
[2020-10-13] MEDS: CLOPIDOGREL BISULFATE 75 MG TABLET PO (08:35)
[2020-10-13] MEDS: ASPIRIN 81 MG CHEWABLE TABLET PO (08:35)
[2020-10-13] MEDS: INSULIN ASPART (*BKC) 100 UNITS/ML 6 UNITS SUB-Q ×3 (09:12→17:18)
--- NOTE | 2020-10-13 11:09 | WPDNEURORHBP ---
Subjective Date/time seen: 10/13/20 11:09 status post stroke involving the brainstem, has been involved in the physical therapy and occupational therapy, there is no change in the medications, vital signs are stable Review of Systems Review of Systems: All systems reviewed & are unremarkable except as noted in HPI and below Functional Status Ambulation Ability Ability to Ambulate 10 Feet: Standby Assistance Ability to Ambulate 50 Feet With 2 Turns: Contact Guard Ability to Ambulate 150 Feet: Contact Guard Ambulation Assistive Devices: Walker, Wheeled Transfers Ability Ability to Transfer In/Out of Chair: Contact Guard Exam Const: General: cooperative, no acute distress, awake and Physically active Nutritional Appearance: average body habitus and thin Limitations: other limitations Eyes: General: appearance normal, both eyes and all related structures Visual Aguirre: normal visual aguirre by confrontation Alignment and Position: alignment normal Periorbital: periorbital findings normal Eyelids: eyelids normal Conjunctivae: conjunctivae normal Sclera: sclerae normal Cornea: corneas normal Resp: Effort & Inspection: able to speak in complete sentences Cardio: Rate: regular rate Rhythm: regular rhythm Skin: General skin exam: no rashes or lesions noted Neuro: General: patient oriented x3 Psych: Appearance: grossly normal Objective Data Vital Signs Vital Signs: Vital Signs - 24 hr 10/12/20 14:00 10/12/20 20:40 10/12/20 21:14 Temperature 36.5 C 36.6 C Pulse Rate 71 74 74 Respiratory Rate 18 18 18 Blood Pressure 120/66 113/41 L Pulse Oximetry 100 98 98 10/13/20 05:51 Temperature 36.0 C L Pulse Rate 71 Respiratory Rate 16 Blood Pressure 132/47 L Pulse Oximetry 99 Intake/Output Intake/Output: Intake & Output 10/10/20 10/11/20 10/12/20 10/13/20 23:59 23:59 23:59 23:59 Intake Total 1200 600 720 360 Balance 1200 600 720 360 Meds/Results Medications: Active Medications Generic Name Dose Route Start Last Admin Trade Name Freq PRN Reason Stop Dose Admin Hydrocodone Bitart/Acetaminophen 1 tab 10/03/20 14:08 10/12/20 09:14 Hydrocodone/Acetaminophen (*Crx) 5-325 Mg Tablet PO 1 tab Q4H PRN Administration Pain Rated 4-6 Aspirin 81 mg 10/03/20 09:00 10/13/20 08:35 Aspirin 81 Mg Chewable Tablet PO 81 mg DAILY PHILL Administration Atorvastatin Calcium 80 mg 10/02/20 21:00 10/12/20 21:00 Atorvastatin 40 Mg Tablet PO 80 mg HS PHILL Administration Benzocaine 1 lozenge 10/04/20 11:57 10/04/20 14:52 Benzocaine/Menthol (*Bkc) 18 Ea Lozenge PO 1 lozenge PRN PRN Administration Sore Throat Bisacodyl 10 mg 10/07/20 11:24 Bisacodyl 10 Mg Suppository RECTAL QAM PRN Constipation Clopidogrel Bisulfate 75 mg 10/03/20 09:00 10/13/20 08:35 Clopidogrel Bisulfate 75 Mg Tablet PO 75 mg DAILY PHILL Administration Cyclobenzaprine HCl 5 mg 10/09/20 17:21 10/09/20 20:38 Cyclobenzaprine Hcl 5 Mg Tablet PO 5 mg Q8H PRN Administration Muscle Spasm Dextrose 12.5 gm 10/02/20 14:50 Dextrose 50% 25 Gm/50 Ml Syringe IV PUSH PRN PRN Hypoglycemia Protocol Glucagon 1 mg 10/02/20 14:50 Glucagon For Inj 1 Mg Vial IM PRN PRN Hypoglycemia Protocol Glucose 15 gm 10/02/20 14:50 Glucose Oral Gel 15 Gm Of Glucse In 37.5 Gm Tube PO PRN PRN Hypoglycemia Protocol Dextrose 1,000 mls @ 100 mls/hr 10/02/20 14:50 Dextrose 5% 1,000 Ml IVPB PRN PRN Hypoglycemia Protocol Insulin Aspart 6 units 10/02/20 17:00 10/13/20 09:12 Insulin Aspart (*Bkc) 100 Units/Ml SUB-Q 6 units TIDWM [facility] Administration Insulin Aspart 2 - 5 units 10/02/20 17:00 10/13/20 08:35 Insulin Aspart (*Bkc) 100 Units/Ml SUB-Q Not Given TIDWM [facility] Protocol Insulin Glargine 18 units 10/02/20 21:00 10/12/20 21:00 Insulin Glargine (*Bkc) 100 Units/Ml SUB-Q 18 units H
[2020-10-13 12:15] LABS: Glucose Point of Care 110 (65-105)
--- NOTE | 2020-10-13 13:24 | PCDIET ---
Nutrition Follow-Up Complete: Nutrition Diagnosis: Swallowing difficulties related to CVA as evidenced by easy to chew diet recommendation. Nutrition Goal: Patient to consume 75% or more of meals on her diabetic consistent carbohydrate diet. Goal met. Patient consuming 75-100% of most meals on diabetic, minced and moist diet. Patient talking on phone at time of visit, but denies c/o or concerns. Daughter reports patient does not care for Karly Khan. Suggested change to Ensure Compact for similar calorie and carbohydrate content. Last recorded weight is 54.7 kg. Recommend obtaining new weight. Bowel Motility: Last documented BM on 10/11/20. Labs Reviewed: Glu (110) Meds Noted: Sturgeon, Lipitor, Novolog, Lantus, Miralax, Senna Additional Notes: No documented skin breakdown. Will continue to monitor with same goal. Nutrition Monitoring and Evaluation: Follow up in 7 days.
[2020-10-13 14:00] VITALS: BP 130/43; PULSE 80; RESP 16; TEMP 36.6; O2SAT 100
[2020-10-13 17:01] LABS: Glucose Point of Care 99 (65-105)
[2020-10-13] MEDS: CYCLOBENZAPRINE HCL 5 MG TABLET PO (17:15)
[2020-10-13] MEDS: ACETAMINOPHEN 325 MG TABLET 650 MG PO (17:15)
[2020-10-13 20:35] VITALS: PULSE 74; RESP 16; O2SAT 99
[2020-10-13 20:52] LABS: Glucose Point of Care 145 (65-105)
[2020-10-13] MEDS: ATORVASTATIN 40 MG TABLET 80 MG PO (21:32)
[2020-10-13] MEDS: SENNA/DOCUSATE SODIUM TABLET 2 TAB PO (21:33)
[2020-10-13] MEDS: INSULIN GLARGINE (*BKC) 100 UNITS/ML 18 UNITS SUB-Q (21:33)
[2020-10-13] MEDS: polyethylene glycoL 3350 17 GM POWD.PACK PO (21:33)
[2020-10-13 22:00] VITALS: BP 135/60; PULSE 74; RESP 16; TEMP 36.4; O2SAT 99
[2020-10-14 06:00] VITALS: BP 127/49; PULSE 72; RESP 16; TEMP 36.3; O2SAT 97
[2020-10-14 06:53] LABS: Glucose Point of Care 80 (65-105)
[2020-10-14] MEDS: CLOPIDOGREL BISULFATE 75 MG TABLET PO (08:03)
[2020-10-14] MEDS: ASPIRIN 81 MG CHEWABLE TABLET PO (08:03)
[2020-10-14] MEDS: INSULIN ASPART (*BKC) 100 UNITS/ML 6 UNITS SUB-Q ×3 (10:19→17:29)
[2020-10-14 12:18] LABS: Glucose Point of Care 149 (65-105)
--- NOTE | 2020-10-14 13:25 | PCNSR ---
On 10/14/20, the student, Bella Del Cid, provided care and completed [facility] documentation on this patient. I have reviewed the student's documentation and agree with the findings.
[2020-10-14 14:00] VITALS: BP 165/52; PULSE 85; RESP 18; TEMP 36.4; O2SAT 99
--- NOTE | 2020-10-14 16:00 | WPDNEURORHBP ---
Subjective Date/time seen: 10/14/20 16:00 is status post brainstem stroke, vital signs stable and is afebrile, medications unchanged Review of Systems Review of Systems: All systems reviewed & are unremarkable except as noted in HPI and below Functional Status Ambulation Ability Ability to Ambulate 10 Feet: Independent Ability to Ambulate 50 Feet With 2 Turns: Standby Assistance Ability to Ambulate 150 Feet: Contact Guard Ambulation Assistive Devices: Walker, Wheeled Transfers Ability Ability to Transfer In/Out of Chair: Independent Exam Const: General: cooperative and no acute distress Nutritional Appearance: average body habitus Orientation/consciousness: patient oriented x3 Limitations: physical limitations HENMT: Head: normocephalic Ears: hearing grossly normal bilaterally General nose exam: Normal external nose present and No nasal discharge present Mouth: Yes Normal oral and palatal mucosa present Eyes: General: appearance normal, both eyes and all related structures Neck: Neck: full ROM Resp: Effort & Inspection: normal respiratory effort Auscultation: clear to auscultation bilaterally Cardio: Rate: regular rate Rhythm: regular rhythm GI: Auscultation: normal bowel sounds Neuro: General: patient oriented x3 Cranial nerves: Yes CN's II-XII intact bilaterally Motor exam (neuro): Abnormal motor strength present Sensory Exam: normal sensation Psych: Appearance: grossly normal Objective Data Vital Signs Vital Signs: Vital Signs - 24 hr 10/13/20 20:35 10/13/20 22:00 10/14/20 06:00 Temperature 36.4 C L 36.3 C L Pulse Rate 74 74 72 Respiratory Rate 16 16 16 Blood Pressure 135/60 127/49 L Pulse Oximetry 99 99 97 Intake/Output Intake/Output: Intake & Output 10/11/20 10/12/20 10/13/20 10/14/20 23:59 23:59 23:59 23:59 Intake Total 600 720 960 600 Balance 600 720 960 600 Meds/Results Medications: Active Medications Generic Name Dose Route Start Last Admin Trade Name Freq PRN Reason Stop Dose Admin Acetaminophen 650 mg 10/13/20 15:10 10/13/20 17:15 Acetaminophen 325 Mg Tablet PO 650 mg Q4H PRN Administration Pain Aspirin 81 mg 10/03/20 09:00 10/14/20 08:03 Aspirin 81 Mg Chewable Tablet PO 81 mg DAILY PHILL Administration Atorvastatin Calcium 80 mg 10/02/20 21:00 10/13/20 21:32 Atorvastatin 40 Mg Tablet PO 80 mg HS PHILL Administration Benzocaine 1 lozenge 10/04/20 11:57 10/04/20 14:52 Benzocaine/Menthol (*Bkc) 18 Ea Lozenge PO 1 lozenge PRN PRN Administration Sore Throat Bisacodyl 10 mg 10/07/20 11:24 Bisacodyl 10 Mg Suppository RECTAL QAM PRN Constipation Clopidogrel Bisulfate 75 mg 10/03/20 09:00 10/14/20 08:03 Clopidogrel Bisulfate 75 Mg Tablet PO 75 mg DAILY PHILL Administration Cyclobenzaprine HCl 5 mg 10/09/20 17:21 10/13/20 17:15 Cyclobenzaprine Hcl 5 Mg Tablet PO 5 mg Q8H PRN Administration Muscle Spasm Dextrose 12.5 gm 10/02/20 14:50 Dextrose 50% 25 Gm/50 Ml Syringe IV PUSH PRN PRN Hypoglycemia Protocol Glucagon 1 mg 10/02/20 14:50 Glucagon For Inj 1 Mg Vial IM PRN PRN Hypoglycemia Protocol Glucose 15 gm 10/02/20 14:50 Glucose Oral Gel 15 Gm Of Glucse In 37.5 Gm Tube PO PRN PRN Hypoglycemia Protocol Dextrose 1,000 mls @ 100 mls/hr 10/02/20 14:50 Dextrose 5% 1,000 Ml IVPB PRN PRN Hypoglycemia Protocol Insulin Aspart 6 units 10/02/20 17:00 10/14/20 12:15 Insulin Aspart (*Bkc) 100 Units/Ml SUB-Q 6 units TIDWM [facility] Administration Insulin Aspart 2 - 5 units 10/02/20 17:00 10/14/20 12:00 Insulin Aspart (*Bkc) 100 Units/Ml SUB-Q Not Given TIDWM [facility] Protocol Insulin Glargine 18 units 10/02/20 21:00 10/13/20 21:33 Insulin Glargine (*Bkc) 100 Units/Ml SUB-Q 18 units HS PHILL Administration Lactulose 30 gm 10/08/20 11:49 Lactulose 20 Gm/30 Ml Udc PO BID
[2020-10-14 17:15] LABS: Glucose Point of Care 111 (65-105)
[2020-10-14] MEDS: ACETAMINOPHEN 325 MG TABLET 650 MG PO (20:18)
[2020-10-14] MEDS: ATORVASTATIN 40 MG TABLET 80 MG PO (20:19)
[2020-10-14] MEDS: polyethylene glycoL 3350 17 GM POWD.PACK PO (20:20)
[2020-10-14] MEDS: SENNA/DOCUSATE SODIUM TABLET 2 TAB PO (20:20)
[2020-10-14 22:00] VITALS: BP 101/68; PULSE 61; RESP 16; TEMP 36.7; O2SAT 100
[2020-10-14 23:03] LABS: Glucose Point of Care 99 (65-105)
[2020-10-15 03:05] LABS: Glucose Point of Care 92 (65-105)
[2020-10-15 03:06] VITALS: BP 145/60; PULSE 66; TEMP 36.2; O2SAT 100
[2020-10-15 06:00] VITALS: BP 130/53; PULSE 74; RESP 16; TEMP 36.7; O2SAT 100
[2020-10-15 06:35] LABS: Glucose Point of Care 110 (65-105)
[2020-10-15 08:00] VITALS: PULSE 74; RESP 16; O2SAT 100
[2020-10-15] MEDS: ASPIRIN 81 MG CHEWABLE TABLET PO (08:30)
[2020-10-15] MEDS: CLOPIDOGREL BISULFATE 75 MG TABLET PO (08:30)
[2020-10-15] MEDS: INSULIN ASPART (*BKC) 100 UNITS/ML 6 UNITS SUB-Q ×2 (08:34→12:19)
[2020-10-15 09:42] VITALS: TEMP 36.7
[2020-10-15] MEDS: ACETAMINOPHEN 325 MG TABLET 650 MG PO (09:42)
[2020-10-15 12:07] LABS: Glucose Point of Care 106 (65-105)
--- NOTE | 2020-10-18 09:50 | PM.DS ---
DS: Admitting Diagnosis Admitting Diagnosis Admitting Diagnosis: brainstem a stroke DS: Summary Hospital Course Hospital Course: Gradual improvement with general physical examination remaining stable and so as the neurological examination Time Spent with Patient Time attestation: ADMISSION FUNCTION:70 years old right-handed female admitted to acute rehab of [facility] with primary rehab impairment category of 0 1 stroke and etiological diagnosis of acute infarct in the posterior left paramedian yomaira with involvement of the left facial colliculus in addition to comorbid conditions 1. Type 2 diabetes mellitus 2. Hyperlipidemia 3. Hypertension 4. Peripheral arterial disease and 5. GERD 6. Vitamin-D deficiency 7. Dry eye syndrome. at the time of admission to the rehab floor her level of function was as follows. Eating [Set Up Only] Oral Care substantial Shower/Bathing substantial Upper Body Dressing partial assistance Lower Body Dressing partial assistant grocery store manager Donning/[place] Footwear substantial Rolling Left and Right supervision Sit to Lying partial assist Lying to Sitting partial assistant grocery store manager Sit to Stand partial assistance Bed to Chair Transfers substantial Toilet Transfers substantial Car Transfers partial assisted Walking 10' partial assistance Walking 50' with Two Turns partial assisted Walking 150' partial assistance Curb or Step partial assistance 4 Steps partial assisted 12 Steps unable Picking Up Object substantial [Wheelchair Mobility 50'] partial assisted [Wheelchair Mobility 150'] partial assist GOALS: Eating [INDEPENDENT] Oral Care [INDEPENDENT] Toileting Hygiene [INDEPENDENT] Shower/Bathing supervision Upper Body Dressing [INDEPENDENT] Lower Body Dressing [INDEPENDENT] Donning/[place] Footwear [INDEPENDENT] Rolling Left and Right [INDEPENDENT] Sit to Lying [INDEPENDENT] Lying to Sitting [INDEPENDENT] Sit to Stand [INDEPENDENT] Bed to Chair Transfers [INDEPENDENT] Toilet Transfers [INDEPENDENT] Car Transfers [INDEPENDENT] Walking 10' [INDEPENDENT] Walking 50' with Two Turns [INDEPENDENT] Walking 150' [INDEPENDENT] Curb or Step [INDEPENDENT] 4 Steps [INDEPENDENT] 12 Steps [INDEPENDENT] Picking Up Object [INDEPENDENT] [Wheelchair Mobility 50'] [INDEPENDENT] [Wheelchair Mobility 150'] [INDEPENDENT] DISCHARGE PERFORMANCE: Eating [INDEPENDENT] Oral Care set up Toileting Hygiene supervision Shower/Bathing supervision Upper Body Dressing independent Lower Body Dressing supervision Donning/[place] Foot[employer] set up Rolling Left and Right [INDEPENDENT] Sit to Lying [INDEPENDENT] Lying to Sitting [INDEPENDENT] Sit to Stand [INDEPENDENT] Bed to Chair Transfers [INDEPENDENT] Toilet Transfers [INDEPENDENT] Car Transfers [INDEPENDENT] Walking 10' [INDEPENDENT] Walking 50' with Two Turns supervision Walking 150' supervision Curb or Step [INDEPENDENT] 4 Steps supervision 12 Steps supervision Picking Up Object supervision [Wheelchair Mobility 50'] [INDEPENDENT] [Wheelchair Mobility 150'] [INDEPENDENT] # during the hospitalization patient remained active be involved in the physical therapy and occupational therapy. No other consultants were involved in the treatment during this particular hospitalization. At the time of discharge her general physical examination was normal, vital signs were stable with temp of 36.7? blood pressure 130/53 and patient was on room air. Her last blood sugar was 106. She was able to ambulate up to 150ft with contact guard using the wheeled walker and was able to transfer in and out of chair independently. # During the entire hospitalization fishing has no fall or injuries, patient was discharged to her home with a home health instruction. Discharge Plan Discharge Patient Disposition: Home Health Service Activity: no driving and as tolerated Diet: diabetic Discharge Instructions: Per Care Coordination: Home Health services have been arranged through [facility]
== END 2020-10-15 13:45 | disposition home health service (06) | DRG 57 ==
PROVIDERS: Admitting Provider Psychiatry & Neurology Neurology; PCP Family Medicine; Visit Provider Psychiatry & Neurology Neurology
DX: I69.354 Hemiplegia and hemiparesis following cerebral infarction affecting left non-dominant side (principal); I69.398 Other sequelae of cerebral infarction; I69.391 Dysphagia following cerebral infarction; I69.392 Facial weakness following cerebral infarction; R13.10 Dysphagia, unspecified; H53.2 Diplopia; E78.5 Hyperlipidemia, unspecified; E11.51 Type 2 diabetes mellitus with diabetic peripheral angiopathy without gangrene; E55.9 Vitamin D deficiency, unspecified; I10 Essential (primary) hypertension; I25.10 Atherosclerotic heart disease of native coronary artery without angina pectoris; K21.9 Gastro-esophageal reflux disease without esophagitis; Z87.891 Personal history of nicotine dependence; Z79.4 Long term (current) use of insulin; Z95.5 Presence of coronary angioplasty implant and graft
CPT/HCPCS: 36415; 80048; 80061; 82948; 83036; 85025; 92507; 92523; 92526; 92610; 97110; 97112; 97116; 97129; 97161; 97166; 97530; 97535; 97542; A9270; J1815